=== PATIENT | female | born 1935 | race Caucasian/White ===

== ENCOUNTER → 2017-09-11 | Outpatient (CLI) | payer MEDICARE, OTHER ==
[~2017-09-11] MED LIST: DENOSUMAB 60 MG/ML 1 ML SYRINGE SQ NR
[2017-09-11 12:00] VITALS: BP 147/67; PULSE 74; RESP 16; TEMP 98.7
== END | disposition home or self-care (01) ==
LOC: PROCWHC3 11:13
PROVIDERS: ATTEND Physician Assistant
DX: M81.0 Age-related osteoporosis without current pathological fracture (principal)
CPT/HCPCS: 96372; J0897

== ENCOUNTER → 2018-03-16 | Outpatient (CLI) | payer MEDICARE, OTHER ==
[~2018-03-16] MED LIST changes: -DENOSUMAB 60 MG/ML 1 ML SYRINGE SQ NR; +DENOSUMAB 60 MG/ML 1 ML SYRINGE SQ ONE
[2018-03-16 10:39] VITALS: BP 152/71; PULSE 67; RESP 16; TEMP 98
== END ==
LOC: PROCWHC3 10:17
PROVIDERS: ATTEND Family Medicine
DX: M81.0 Age-related osteoporosis without current pathological fracture (principal)
CPT/HCPCS: 96372; J0897

== ENCOUNTER → 2018-09-22 | Outpatient (CLI) | payer MEDICARE, OTHER ==
[2018-09-22 10:41] VITALS: BP 141/68; PULSE 63; RESP 16; TEMP 97.3
== END | disposition home or self-care (01) ==
LOC: PROCWHC3 10:15
PROVIDERS: ATTEND Family Medicine
DX: M81.0 Age-related osteoporosis without current pathological fracture (principal)
CPT/HCPCS: 96372; J0897

== ENCOUNTER → 2019-03-26 | Outpatient (CLI) | payer MEDICARE, OTHER ==
[~2019-03-26] MED LIST changes: +DENOSUMAB 60 MG/ML 1 ML SYRINGE SQ NR; -DENOSUMAB 60 MG/ML 1 ML SYRINGE SQ ONE
[2019-03-26 10:48] VITALS: BP 122/78; PULSE 97; RESP 16; TEMP 97.8
== END ==
LOC: PROCWHC3 10:23
PROVIDERS: ATTEND Family Medicine
DX: M81.0 Age-related osteoporosis without current pathological fracture (principal)
CPT/HCPCS: 96372; J0897

== ENCOUNTER → 2019-10-14 | Outpatient (CLI) | payer MEDICARE, OTHER ==
[2019-10-14 11:10] VITALS: BP 132/71; PULSE 84; RESP 16; TEMP 98.5
== END | disposition home or self-care (01) ==
LOC: PROCWHC3 10:26
PROVIDERS: ATTEND Family Medicine
DX: M81.0 Age-related osteoporosis without current pathological fracture (principal)
CPT/HCPCS: 96372; J0897

== ENCOUNTER → 2020-04-18 | Outpatient (CLI) | payer MEDICARE, OTHER ==
[2020-04-18 11:15] VITALS: BP 162/74; PULSE 79; RESP 16; TEMP 98.5
== END | disposition home or self-care (01) ==
LOC: PROCWHC3 11:01
PROVIDERS: ATTEND Family Medicine
DX: M81.0 Age-related osteoporosis without current pathological fracture (principal)
CPT/HCPCS: 96372; J0897

== ENCOUNTER → 2020-10-19 | Outpatient (CLI) | payer MEDICARE, OTHER ==
[2020-10-19 10:30] VITALS: BP 151/73; PULSE 89; RESP 16; TEMP 98.3
== END ==
LOC: PROCWHC3 10:21
PROVIDERS: ATTEND Family Medicine
DX: M81.0 Age-related osteoporosis without current pathological fracture (principal); Z88.0 Allergy status to penicillin
CPT/HCPCS: 96372

== ENCOUNTER → 2021-05-07 | Outpatient (CLI) | payer MEDICARE, OTHER | LOC: PROCWHC3 10:40 | PROVIDERS: ATTEND Family Medicine | DX: M81.0 Age-related osteoporosis without current pathological fracture (principal); E03.9 Hypothyroidism, unspecified; J45.909 Unspecified asthma, uncomplicated; E78.00 Pure hypercholesterolemia, unspecified; F41.1 Generalized anxiety disorder; I10 Essential (primary) hypertension; K21.9 Gastro-esophageal reflux disease without esophagitis; Z79.890 Hormone replacement therapy; Z79.51 Long term (current) use of inhaled steroids; Z79.899 Other long term (current) drug therapy; Z88.0 Allergy status to penicillin | CPT/HCPCS: 96372; J0897 ==

== ENCOUNTER → 2021-12-26 | Outpatient (CLI) | payer MEDICARE, OTHER ==
[2021-12-26 09:54] VITALS: BP 155/76; PULSE 80; RESP 16; TEMP 98.5
== END ==
LOC: PROCWHC3 09:46
PROVIDERS: ATTEND Family Medicine
DX: M81.0 Age-related osteoporosis without current pathological fracture (principal); Z88.0 Allergy status to penicillin
CPT/HCPCS: 96372; J0897

== ENCOUNTER → 2023-01-01 | Outpatient (CLI) | payer MEDICARE, OTHER ==
[~2023-01-01] MED LIST changes: -DENOSUMAB 60 MG/ML 1 ML SYRINGE SQ NR; +DENOSUMAB 60 MG/ML 1 ML SYRINGE SQ ONE
[2023-01-01 10:09] VITALS: BP 156/74; PULSE 76; RESP 15; TEMP 97.7
== END ==
LOC: PROCWHC3 09:59
PROVIDERS: ATTEND Family Medicine
DX: M81.0 Age-related osteoporosis without current pathological fracture (principal)
CPT/HCPCS: 96372; J0897

== ENCOUNTER → 2023-08-07 | Outpatient (CLI) | payer MEDICARE, OTHER ==
[2023-08-07] MEDS: DENOSUMAB 60 MG/ML 1 ML SYRINGE SQ NR (14:05)
[2023-08-07 14:15] VITALS: BP 168/71; PULSE 80; RESP 16; TEMP 97.9
== END ==
LOC: PROCWHC3 13:22
PROVIDERS: ATTEND Family Medicine
DX: M81.0 Age-related osteoporosis without current pathological fracture (principal)
CPT/HCPCS: 96372; J0897

== ENCOUNTER → 2024-02-09 | Outpatient (CLI) | payer MEDICARE, OTHER ==
[2024-02-09 10:15] VITALS: BP 142/71; PULSE 77; RESP 16; TEMP 97.5
[2024-02-09] MEDS: DENOSUMAB 60 MG/ML 1 ML SYRINGE SQ ONE (10:16)
== END ==
LOC: PROCWHC3 10:05
PROVIDERS: ATTEND Family Medicine
DX: M81.0 Age-related osteoporosis without current pathological fracture (principal)
CPT/HCPCS: 96372; J0897

== ENCOUNTER → 2024-02-27 | Outpatient (CLI) | payer MEDICARE, OTHER ==
--- NOTE | 2024-02-27 11:17 | MM ---
Reason for Exam: Clinical finding. Last mammogram was performed 5 year(s) and 0 month(s) ago. Indicated Problems: Pain of the left side. Patient History: Menarche at age 16. First Full-Term at age 24. Postmenopausal. Prior Study Comparison: 02/27/2018 Bilateral Screening Mammogram, [facility]. 03/01/2019 Bilateral Screening Mammogram, [facility]. Tissue Density: The breasts are heterogeneously dense, which may obscure small masses. Findings: Analyzed By CAD. No finding to correlate with patient's pain. Overall Assessment: Incomplete: need additional imaging evaluation, BI-RAD 0 Management: Diagnostic Breast Ultrasound of the left breast. Results were given to the patient verbally at the time of exam. Patient should continue monthly self-breast exams. A clinical breast exam by your physician is recommended on an annual basis. This exam should not preclude additional follow-up of suspicious palpable abnormalities. Note on Vanda scores and lifetime risk: 1. A Vanda score greater than 3% is considered moderate risk. If this is the case, consider specialist referral to assess eligibility for a risk reducing agent. 2. If overall lifetime risk for the development of breast cancer is 20% or higher, the patient may qualify for future screening with alternating mammogram and breast MRI. [facility], , 02/27/2024 11:13 AM. Electronically signed and approved by: Shon Singh DO
--- NOTE | 2024-02-27 11:48 | USB ---
Reason for Exam: Clinical finding. Patient History: Menarche at age 16. First Full-Term at age 24. Postmenopausal. Technique: Method: Targeted. Prior Study Comparison: 02/27/2018 Bilateral Screening Mammogram, [facility]. 03/01/2019 Bilateral Screening Mammogram, [facility]. Findings: The lateral section of the breast of the left breast, the axilla of the left breast and the retroareolar of the left breast were scanned. Technique utilized:US breast limited LT Image; Ultrasound imaging of: Area of concern, retroareolar region and axilla. Scattered dilated ducts in the retroareolar region no intraductal masses definitively visualized. At 12:00 2 cm nipple is a 8 x 9 x 3 mm cyst with a small peripheral thickening. There is thought to represent complex cyst. Short-term follow-up in 6 months for this lesion. Overall Assessment: Probably benign, BI-RAD 3 Management: Diagnostic Breast Ultrasound of the left breast in 6 months. A clinical breast exam by your physician is recommended on an annual basis and results should be correlated with mammographic findings. This exam should not preclude additional follow-up of suspicious palpable abnormalities. Results were given to the patient verbally at the time of exam. [facility], , 02/27/2024 11:46 AM. Electronically signed and approved by: Shon Singh DO
== END | disposition home or self-care (01) ==
LOC: RADMAMWWP 10:42
PROVIDERS: ATTEND Family Medicine
DX: N64.4 Mastodynia
CPT/HCPCS: 77062; 77066

== ENCOUNTER → 2024-03-22 | Outpatient (CLI) | payer MEDICARE, OTHER ==
--- NOTE | 2024-03-22 10:42 | NM ---
EXAMINATION TYPE: NM hepatobiliary w EF DATE OF EXAM: 03/22/2024 COMPARISON: NONE INDICATION: Right upper quadrant pain TECHNIQUE: After the intravenous administration of 3.8 mCi Tc 99m Mebrofenin hepatobiliary scintigrap hy is performed. Images were obtained immediately post injection. FINDINGS: There is prompt uptake and excretion of radiotracer by the liver. Extrahepatic ducts are identified at 16 minutes. The gallbladder is visualized within 16 minutes. Small bowel activity is noted within 46 minutes. At one hour 8 ounces of oral ensure plus is given to mimic CCK and gallbladder ejection fraction is c alculated at 81 %, which is minimally elevated. Consider hyperkinesia.. (Normal >35% and <80%.). IMPRESSION: 1. No obstruction evident. 2. Some minimal hyperkinesia of the gallbladder likely present [facility], , 03/22/2024 10:40 AM
== END | disposition home or self-care (01) ==
LOC: RADNMMAIN 06:40
PROVIDERS: ATTEND Family Medicine
DX: R10.11 Right upper quadrant pain (principal); K82.8 Other specified diseases of gallbladder
CPT/HCPCS: 78226; A9537

== ENCOUNTER 2024-04-29 12:31 | Day surgery (SDC) | payer MEDICARE, OTHER ==
[2024-04-28 09:03] VITALS: BMI 20.7
--- NOTE | 2024-04-29 09:37 | P.GSHP ---
History of Present Illness H&P Date: 04/29/24 CHIEF COMPLAINT: Cholecystitis HISTORY OF PRESENT ILLNESS: The patient is a 88-year-old female who presents with history of epigastric including right upper quadrant abdominal pain. He underwent diagnostic studies for the gallbladder. Separately his clinical picture was consistent with cholecystitis. Now he presents for surgical intervention. PAST MEDICAL HISTORY: Please see list PAST SURGICAL HISTORY: Please see list MEDICATIONS: Please see list ALLERGIES: Denies. SOCIAL HISTORY: No illicit drug use or recent tobacco use FAMILY HISTORY: Pertinent for gallbladder disease REVIEW OF ORGAN SYSTEMS: CONSTITUTIONAL: No reports of fevers or chills. HEENT: Denies any troubles with the vision or hearing. ENDOCRINE: No reports of hypothyroidism. No diabetes. RESPIRATORY: No recent pneumonias. Has chronic obstructive pulmonary disease CARDIOVASCULAR: Denies chest pain or palpitations GI: No blood in stools or constipation. MUSCULOSKELETAL: Has occasional joint pain including back pain. NEURO: No seizure disorders or headaches. No recent stroke. PSYCH: No depression or suicidal ideation. HEMATOLOGIC: No personal or family history of DVTs or pulmonary emboli. PHYSICAL EXAM: VITAL SIGNS: Afebrile vital signs stable GENERAL: Well-developed pleasant male in no acute distress. HEENT: No scleral icterus. Extraocular movements grossly intact. Moist buccal mucosa. NECK: Supple without lymphadenopathy. CHEST: Unlabored respirations. Equal bilateral excursions. CARDIOVASCULAR: Regular rate regular rhythm rhythm. Distal 2+ pulses. ABDOMEN: Soft, nondistended. Tender along the epigastrium and right upper quadrant. MUSCULOSKELETAL: No clubbing, cyanosis, or edema. NEURO : No focal or lateralizing signs. Cranial nerves II-12 within normal limits. PSYCH: Alert and oriented to person, place and time. SKIN: Well perfused. Good skin turgor. ASSESSMENT: 1. Epigastric and right upper quadrant abdominal pain 2. Chronic cholecystitis 3. Chronic struct of pulmonary disease PLAN: 1. Will need a robotic cholecystectomy possible open. Benefits and risks were described. 2. Heparin for DVT prophylaxis 5000 units. 3. Antibiotic prophylaxis. 4. CBC and CMP on day of procedure 5. Non-narcotic pre and post op pain management reviewed. 6. Indocyanine green for biliary imaging. 4. She is elevated risk for complications due to chronic obstructive pulmonary disease Past Medical History Past Medical History: Asthma, COPD, GERD/Reflux, Hyperlipidemia, Hypertension, Thyroid Disorder Additional Past Medical History / Comment(s): OSTEOPOROSIS; dry heaves-bile r/t gallbladder History of Any Multi-Drug Resistant Organisms: None Reported Past Surgical History: Appendectomy, Bowel Resection, Hernia Repair, Tubal Ligation Additional Past Surgical History / Comment(s): Cataracts removed Past Anesthesia/Blood Transfusion Reactions: No Reported Reaction Smoking Status: Former smoker Medications and Allergies Home Medications Medication Instructions Recorded Confirmed Type Levothyroxine Sodium [Synthroid] 75 mcg PO DAILY 03/16/18 04/28/24 History Atorvastatin [Lipitor] 40 mg PO HS 09/22/18 04/28/24 History Olmesartan/Hydrochlorothiazide 1 tab PO DAILY 09/22/18 04/28/24 History [Olmesartan-Hctz 40-12.5 mg Tab] Denosumab [Prolia] 60 mg SQ DIRECTED 08/07/23 04/28/24 History Magnesium Oxide [Magnesium] 500 mg PO DAILY 08/07/23 04/28/24 History Montelukast [Singulair] 10 mg PO HS 08/07/23 04/28/24 History Pantoprazole [Protonix] 40 mg PO DAILY 08/07/23 04/28/24 History Vit C/E/Zn/Coppr/Lutein/Zeaxan 1 tab PO DAILY 08/07/23 04/28/24 History [Preservision Areds 2 Chew Tab] Albuterol Inhaler [Ventolin Hfa 1 puff INHALATION DIRECTED PRN 04/28/24 04/28/24 History Inhaler] Calcium Carbonate/Vitamin D3 1 each PO DAILY 04/28/24 04/28/24 History [Calcium 500 mg-Vit D3 5 mcg (200 Unit)] Cyanocobalamin [Vitamin B-12] 500 mcg PO DAILY 04/28/24 04/28/24 History Fluticasone/Umeclidin/Vilanter 1 puff INHALATION DAILY 04/28/24 04/28/24 History [Jonolerick Ellipta 100-62.5-25] Allergies Allergy/AdvReac Type Severity Reaction Status Date / Time Penicillins Allergy Rash/Hives Verified 04/28/24 08:48
[~2024-04-29 12:31] MED LIST changes: -DENOSUMAB 60 MG/ML 1 ML SYRINGE SQ ONE; +HYDROmorphone 0.5 MG/0.5 ML SYRINGE IVP PRN; +INDOCYANINE GREEN 25 MG VIAL IV STA; +LIDOCAINE 1% (10MG/ML) FOR IV START INTRADERMA PRN; +MIDAZOLAM 2 MG/2 ML VIAL IV PRN; +ONDANSETRON 4 MG/2 ML VIAL IVP PRN; +fentaNYL (PF) 50 MCG/ML 2 ML AMP IVP PRN
[2024-04-29] MEDS: LACTATED RINGERS 1,000 ML IV SCH (13:00)
[2024-04-29] MEDS: IV FLUID CONTINUATION 1,000 ML IV ONE (13:00)
[2024-04-29] MEDS: ACETAMINOPHEN TAB 500 MG TAB PO PRN (13:36)
[2024-04-29] MEDS ORDERED: SUCCINYLCHOLINE CHLORIDE 200 MG/10 ML VIAL IV ONE (13:37)
[2024-04-29] MEDS ORDERED: PROPOFOL 10 MG/ML 20 ML VIAL IV ONE (13:37)
[2024-04-29] MEDS ORDERED: NEOSTIGMINE 1 MG/ML 10 ML VIAL ONE (13:37)
[2024-04-29] MEDS ORDERED: fentaNYL (PF) 50 MCG/ML 2 ML AMP ONE (13:37)
[2024-04-29] MEDS ORDERED: PHENYLEPHRINE-0.9% NACL SYG 1,000 MCG/10 ML SYRINGE ONE (13:37)
[2024-04-29] MEDS ORDERED: GLYCOPYRROLATE 0.2 MG/ML 2 ML VIAL ONE (13:37)
[2024-04-29] MEDS ORDERED: LIDOCAINE 1% INJ 10MG/ML (20 ML MDV) ONE (13:37)
[2024-04-29] MEDS ORDERED: ROCURONIUM 10 MG/ML (5 ML VIAL) IV ONE (13:37)
[2024-04-29] MEDS ORDERED: ePHEDrine 50 MG/ML 1 ML VIAL ONE (13:37)
[2024-04-29] MEDS: HEPARIN SODIUM,PORCINE 5,000 UNIT/ML 1 ML VIAL SQ PRN (13:39)
[2024-04-29] MEDS: ONDANSETRON 4 MG/2 ML VIAL IVP ONE (13:39)
[2024-04-29] MEDS: DEXAMETHASONE SOD PHOSPHATE 4 MG/ML 1 ML VIAL IV ONE (13:41)
[2024-04-29] MEDS: LIDOCAINE 1%-EPI 1:100,000 20 ML VIAL SQ ONE ×2 (13:57→14:07)
[2024-04-29] MEDS: LACTATED RINGERS 1,000 ML IV ONE (14:34)
[2024-04-29 14:48] VITALS: TEMP 97.1
[2024-04-29 15:28] LABS: Basophils % (A) 1 %; Eosinophils # (A) 0.1 k/uL (0-0.7); Eosinophils % (A) 1 %; HCT 38.4 % (34.0-46.0); HGB 12.3 gm/dL (11.4-16.0); Lymphocytes # (A) 2.2 k/uL (1.0-4.8); Lymphocytes % (A) 37 %; MCH 29.7 pg (25.0-35.0); MCHC 32.2 g/dL (31.0-37.0); MCV 92.5 fL (80.0-100.0); Mean Platelet Volume 8.3; Monocytes # (A) 0.3 k/uL (0-1.0); Monocytes % (A) 5 %; Neutrophils # (A) 3.2 k/uL (1.3-7.7); Neutrophils % (A) 54 %; Platelet Count 215 k/uL (150-450); RBC 4.15 m/uL (3.80-5.40); RDW 13.3 % (11.5-15.5)
[2024-04-29 16:16] LABS: ALT 19 U/L (4-34); AST 26 U/L (14-36); African American GFR (CKD) 66 (>60 ml/min/1.73 sqM); Albumin 4.3 g/dL (3.5-5.0); Alkaline Phosphatase 62 U/L (38-126); Anion Gap 5 mmol/L; Blood Urea Nitrogen 22 mg/dL (7-17); Calcium 9.3 mg/dL (8.4-10.2); Carbon Dioxide 27 mmol/L (22-30); Chloride 103 mmol/L (98-107); Glucose 150 mg/dL (74-99); Non-African American GFR(CKD) 57 (>60 ml/min/1.73 sqM); Potassium 4.3 mmol/L (3.5-5.1); Sodium 135 mmol/L (137-145); Total Bilirubin 0.6 mg/dL (0.2-1.3); Total Protein 6.6 g/dL (6.3-8.2)
[2024-04-29 16:32] VITALS: BP 128/60; PULSE 71; RESP 14
--- NOTE | 2024-04-29 21:56 | P.OP ---
Date of Procedure: 04/29/24 Description of Procedure: SURGEON: TORIE BONILLA MD PREOPERATIVE DIAGNOSES: 1. Chronic cholecystitis 2. Right upper quadrant abdominal pain 3. Gastroesophageal reflux disease 4. Hypertensive heart disease 5. Chronic obstructive pulmonary disease due to asthma 6. Hypothyroidism 7. Hyperlipidemia 8. Osteoporosis 9. Generalized anxiety disorder 10. Depressive disorder 11. History of multiple abdominal surgeries POSTOPERATIVE DIAGNOSES: 1. Chronic cholecystitis 2. Right upper quadrant abdominal pain 3. Gastroesophageal reflux disease 4. Hypertensive heart disease 5. Chronic obstructive pulmonary disease due to asthma 6. Hypothyroidism 7. Hyperlipidemia 8. Osteoporosis 9. Generalized anxiety disorder 10. Depressive disorder 11. Peritoneal adhesions 12. Right inguinal hernia, indirect, 2 cm without incarceration 13. Hepatic cyst OPERATION: 1. Robotic-assisted da Skyla Xi laparoscopic cholecystectomy, multiport with FIREFLY 2. Robotic-assisted da Skyla Xi laparoscopic lysis of adhesions ESTIMATED BLOOD LOSS: 5 mL. SPECIMENS REMOVED: Gallbladder. COMPLICATIONS: None. OPERATIVE FINDINGS: 1. Moderate scarring over entire gallbladder with peritoneal adhesions, pericholecystic with features of chronic cholecystitis 2. Multiple gallstones over 6 identified at least 8 mm in size 3. Hepatic cysts caudate lobe, 3 cm INDICATIONS: The patient is a 88-year-old female who presents with chronic cholecystitis. Robotic assisted laparoscopic approach was described. Benefits and risks of the procedure including but not limited to bleeding, infection, injury to the biliary tree was described. Informed consent was obtained. DESCRIPTION OF PROCEDURE: Patient was brought to the operating room, placed in supine position. After general induction, the abdomen had been prepped and draped in standard sterile fashion. The robotic da Skyla XI system was primed. After a timeout protocol was performed, the patient had been prepped and draped in standard sterile fashion. The patient was injected with indocyanine green. A 5 mm 0 degrees laparoscopic trocar entry was performed along the left upper quadrant. The abdomen insufflated to 15 mmHg pressure which was tolerated well. Diagnostic laparoscopy demonstrated no injury to bowel viscera or mesentery. The liver surface was unremarkable. Cyst along the caudate lobe at least 3 cm was identified. A 2 to 3 cm indirect right inguinal hernia initially was identified without incarceration. Next, two 8 mm robotic ports were placed along the right upper abdomen. The camera 8-mm port was maintained along the epigastrium. Another 8 mm port was placed along the left upper abdominal wall after exchanging the 5 mm port. Please note that the ports were placed at least 10 to 15 cm away from the target anatomy of the gallbladder. The robot was docked along the left lateral abdomen. The patient was repositioned in reverse Trendelenburg position. Using a grasper for arm 3, a grasper for arm 4, including hook cautery for arm 1, the robotic system was docked and primed as described. Instruments were interchanged by the miller head assistant wet process including hook cautery, Bovie cautery and clip appliers. I had sat at the console. The gallbladder was scarred with peritoneal adhesions. Lysis of adhesions was performed to free the gallbladder from the surrounding tissues. Dome down technique was performed from the gallbladder fundus towards the infundibulum. Next attention was brought to the infundibulum and cystic structures. The infundibulum and cystic duct were dissected free from surrounding tissues. The cystic duct was isolated. FIREFLY was used to identify the cystic artery and cystic structures. A critical view of safety was obtained. Large PLASTIC clips were used throughout the entire case. Using a clip education program specialist, 3 clips were placed at the junction of the infundibulum and cystic duct. The cystic duct was divided between clips. Next, the cystic artery was cauterized. Electro-Bovie cautery was used to remove the gallbladder from the hepatic fossa. Hemostasis was checked and found to be adequate. The robot was undocked. I re-scrubbed into the case. Using a 10 mm Endo Catch bag via the left upper quadrant incision, the specimen was removed from the abdominal cavity. All pneumoperitoneum instruments were evacuated from the abdominal cavity. The incisions were reapproximated using 4-0 Monocryl in an interrupted subcuticular fashion. Fascial defects were less than 8 mm in size. Please note along the trocar sites, local anesthetic was placed as a field block prior to insertion of all instruments. Liquid glue was applied to the skin. At the end of the procedure needle, sponge, and instrument count had been verified correct by the surgical brace maker. The patient was transferred to postanesthesia care unit in stable condition. Intraoperative films were shared with the patient's family. Plan - Discharge Summary Discharge Rx Participant: No New Discharge Prescriptions: New Simethicone [Gas-X] 125 mg PO AC-TID PRN #20 capsule PRN Reason: Pain Acetaminophen Tab [Tylenol Tab] 1,000 mg PO Q6HR PRN #30 tablet PRN Reason: Pain Continue Levothyroxine Sodium [Synthroid] 75 mcg PO DAILY Atorvastatin [Lipitor] 40 mg PO HS Olmesartan/Hydrochlorothiazide [Olmesartan-Hctz 40-12.5 mg Tab] 1 tab PO DAILY Montelukast [Singulair] 10 mg PO HS Denosumab [Prolia] 60 mg SQ DIRECTED Albuterol Inhaler [Ventolin Hfa Inhaler] 1 puff INHALATION DIRECTED PRN PRN Reason: Shortness Of Breath Magnesium Oxide [Magnesium] 500 mg PO DAILY Vit C/E/Zn/Coppr/Lutein/Zeaxan [Preservision Areds 2 Chew Tab] 1 tab PO DAILY Pantoprazole [Protonix] 40 mg PO DAILY Cyanocobalamin [Vitamin B-12] 500 mcg PO DAILY Fluticasone/Umeclidin/Vilanter [Trelegy Ellipta 100-62.5-25] 1 puff INHALATION DAILY Calcium Carbonate/Vitamin D3 [Calcium 500 mg-Vit D3 5 mcg (200 Unit)] 1 each PO DAILY Discharge Medication List Levothyroxine Sodium [Synthroid] 75 mcg PO DAILY 03/16/18 [History] Atorvastatin [Lipitor] 40 mg PO HS 09/22/18 [History] Olmesartan/Hydrochlorothiazide [Olmesartan-Hctz 40-12.5 mg Tab] 1 tab PO DAILY 09/22/18 [History] Denosumab [Prolia] 60 mg SQ DIRECTED 08/07/23 [History] Magnesium Oxide [Magnesium] 500 mg PO DAILY 08/07/23 [History] Montelukast [Singulair] 10 mg PO HS 08/07/23 [History] Pantoprazole [Protonix] 40 mg PO DAILY 08/07/23 [History] Vit C/E/Zn/Coppr/Lutein/Zeaxan [Preservision Areds 2 Chew Tab] 1 tab PO DAILY 08/07/23 [History] Albuterol Inhaler [Ventolin Hfa Inhaler] 1 puff INHALATION DIRECTED PRN 04/28/24 [History] Calcium Carbonate/Vitamin D3 [Calcium 500 mg-Vit D3 5 mcg (200 Unit)] 1 each PO DAILY 04/28/24 [History] Cyanocobalamin [Vitamin B-12] 500 mcg PO DAILY 04/28/24 [History] Fluticasone/Umeclidin/Vilanter [Trelegy Ellipta 100-62.5-25] 1 puff INHALATION DAILY 04/28/24 [History] Acetaminophen Tab [Tylenol Tab] 1,000 mg PO Q6HR PRN #30 tablet 04/29/24 [Rx] Simethicone [Gas-X] 125 mg PO AC-TID PRN #20 capsule 04/29/24 [Rx] Follow up Appointment(s)/Referral(s): Torie Bonilla MD [STAFF PHYSICIAN] - 05/03/24 6:15 pm (Telehealth) Patient Instructions/Handouts: *Surgery [facility] - (Anesthesia) Discharge Instructions Outpatient Surgery, Low Fat Diet (GEN), Laparoscopic Cholecystec audrey (DC) Activity/Diet/Wound Care/Special Instructions: TELEHEALTH - DR WILL CALL YOU BETWEEN 9 am to 8 pm NO LONG DRIVES OR AIRPLANE RIDES OVER 60 MINUTES FOR THE NEXT 2 WEEKS, 05/13/24, DUE TO HIGH RISK OF PULMONARY EMBOLISM/DVTs May drive in 72 hrs, 05/01/24 Recommend low-fat diet for the next 2 days. No lifting over 10 pounds in 2 weeks until 05/13/24 May shower. No bath tub soaks for two weeks until 05/13/24 Diet as tolerated. Use Tylenol, simethicone scheduled for the next 24-48 hours for best pain relief. Use ice along incisions for today to prevent swelling. Discharge Disposition: HOME SELF-CARE
== END 2024-04-29 17:48 | disposition home or self-care (01) ==
LOC: OR 12:31
PROVIDERS: ATTEND Surgery Plastic and Reconstructive Surgery
DX: K81.1 Chronic cholecystitis (principal); E03.9 Hypothyroidism, unspecified; E78.5 Hyperlipidemia, unspecified; F32.A Depression, unspecified; F41.1 Generalized anxiety disorder; I11.9 Hypertensive heart disease without heart failure; J44.89 Other specified chronic obstructive pulmonary disease; K21.9 Gastro-esophageal reflux disease without esophagitis; K40.90 Unilateral inguinal hernia, without obstruction or gangrene, not specified as recurrent; K66.0 Peritoneal adhesions (postprocedural) (postinfection); K76.89 Other specified diseases of liver; M81.0 Age-related osteoporosis without current pathological fracture; Z79.890 Hormone replacement therapy; Z79.899 Other long term (current) drug therapy; Z87.891 Personal history of nicotine dependence; Z88.0 Allergy status to penicillin; Z90.49 Acquired absence of other specified parts of digestive tract; Z98.51 Tubal ligation status; Z98.890 Other specified postprocedural states
CPT/HCPCS: 47562; 88304; 80053; 85025; J0330; J1644; J1100; J2710; J2405; J0690; J2003; J3010; J2704; J2371; J1596

== ENCOUNTER → 2024-08-18 | Outpatient (CLI) | payer MEDICARE, OTHER ==
[2024-08-18 12:23] VITALS: BP 158/71; PULSE 69; RESP 18; TEMP 97.8
[2024-08-18] MEDS: DENOSUMAB 60 MG/ML 1 ML SYRINGE SQ ONE (12:27)
== END ==
LOC: PROCWHC3 11:59
PROVIDERS: ATTEND Family Medicine
DX: M81.0 Age-related osteoporosis without current pathological fracture (principal)
CPT/HCPCS: 96372; J0897

== ENCOUNTER → 2024-10-29 | Outpatient (CLI) | payer MEDICARE, OTHER ==
--- NOTE | 2024-10-29 16:09 | BD ---
EXAMINATION TYPE: Axial Bone Density DATE OF EXAM: 10/29/2024 CLINICAL HISTORY: 89 years old Female. ICD-10 CODE: M81.0 AGE RELATED OSTEO , Additional History: Height: 60 Weight: 105.5 FRAX RISK QUESTIONS: Alcohol (3 or more units per day): no Family History (Parent hip fracture): no Glucocorticoids (More than 3mos): no (Ex: prednisone, prednisolone, methylprednisolone, dexamethasone, and hydrocortisone). History of Fracture in Adulthood: no Secondary Osteoporosis: 1. Type 1 Diabetes: no 2. Hyperthyroidism: no 3. Menopause before 45: no 4. Malnutrition: no 5. Chronic liver disease: no Rheumatoid Arthritis: no Current Tobacco Use: no RISK FACTORS HISTORY OF: Hip Fracture (Right/Left): no Spine Fracture: no History of Wrist Fracture: bilateral as a child Surgery to Spine/Hip(right/left)/Wrist (right/left): no MEDICATIONS: Thyroid Medications: Levothyroxine How Long: past 15 years Osteoporosis Medications: Prolia past 4 years (every 6 months) EXAM MEASUREMENTS: Bone mineral densitometry was performed using the [facility]. Bone mineral density as measured about the Lumbar spine is: ----- L1-L4(G/cm2): 1.490 T Score Values are as follows: ----- L1: 2.3 ----- L2: 3.1 ----- L3: 2.7 ----- L4: 2.0 ----- L1-L4: 2.6 Z Score Values are as follows: ----- L1: 4.8 ----- L2: 5.7 ----- L3: 5.3 ----- L4: 4.5 ----- L1-L4: 5.1 Baseline Study Bone mineral density about the R hip (g/cm2): 0.782 Bone mineral density about the L hip (g/cm2): 0.834 T Score values are as follows: -----R Neck: -2.6 -----L Neck: -1.9 -----R Total: -1.8 -----L Total: -1.4 Z Score values are as follows: -----R Neck: 0.3 -----L Neck: 1.0 -----R Total: 1.1 -----L Total: 1.5 Baseline Study FRAX%s: The graph provided illustrates a 14.2% chance for a major osteoporotic fx and a 5.6% chance f or the hips probability for fx in 10 years time. IMPRESSION: Osteoporosis (T Score less than -2.5). There is increased fracture risk and therapy is usually indicated based on age. Re-Screen 1-2 years. NOTE: T-SCORE=SD OF THE YOUNG ADULT MEAN. [facility], , 10/29/2024 4:06 PM
== END | disposition home or self-care (01) ==
LOC: RADBDWWP 11:17
PROVIDERS: ATTEND Family Medicine
DX: M81.0 Age-related osteoporosis without current pathological fracture (principal)
CPT/HCPCS: 77080